=== PATIENT | male | born 1960 | race Two or more races ===

== ENCOUNTER 2024-01-28 16:19 | Inpatient (IN) | payer OTHER, SELFPAY ==
[2024-01-28] VITALS (8 sets, daily range): BP systolic 127–139; BP diastolic 73–97; BMI 22.4
--- NOTE | 2024-01-28 15:58 | HPS.HSE ---
Family Physician
-
Family Physician: Edenilson Storm MD
Chief Complaint
-
NSTEMI
History of Present Illness
63-year-old male with past medical history of type 2 diabetes, , family history significant for coronary disease, HTN, and iron deficiency anemia presented to [facility] after experiencing chest pain and shortness of breath while working.
He he said that the chest pain lasted about 15 minutes and 8 out of 10 pain severity. Of note patient complained of 1 episode of bloody diarrhea that morning. While in the emergency room patient was found to have elevated troponins initial was 10
and with repeat it was 40s and eventually plateaued around the 90s. He was made n.p.o. for a lower endoscopy which showed no acute bleeding. Today he was taken to the cardiac [employer] which showed multivessel disease. Therefore he was transferred
to [facility] for surgical evaluation.
Echocardiogram on 01/23 showed normal LVEF and no significant valvular abnormalities and left heart cath revealed a normal left main, proximal LAD 90% stenosis followed by multiple areas of 50 to 70% mid LAD stenosis, OM 2 and had a long area of mid
50 to 70% stenosis.
Medical History
Past Medical History
Past Medical History: Reports CAD, HTN, Hypercholesterolemia and NIDDM
Past Surgical History: Reports Other (Circumcision)
Social History
Tobacco: Non-smoker
Alcohol: None
Drug: None
Personal:
Living: With Family
Employment: Employed (works at [employer])
Family History
Family History: CAD (brother and father)
Allergies / Home Medications
Allergies reflects when Allergies were last updated in [employer].
Home Medications with original date entered in [employer]
Allergy/Medication List:
Home Medications
�Medication �Instructions �Recorded
empagliflozin 25 mg tablet 25 mg PO DAILY 01/28/24
(Jardiance)
empagliflozin 25 mg tablet 25 mg PO DAILY 01/28/24
(Jardiance)
losartan 50 mg tablet 50 mg PO DAILY 01/28/24
metformin 1,000 mg tablet 1,000 mg PO BIDWMEAL 01/28/24
pioglitazone 45 mg tablet 45 mg PO DAILY 01/28/24
Active Medications
Acetaminophen (Acetaminophen 325 Mg Tablet) 650 mg PO Q4HPRN PRN
PRN Reason: mild pain/ATKINSON/temp> 100.4F
Stop: 02/25/24 15:52
Al Hydrox/Mg Hydrox/Simethicone (Mag/Al/Simethicone Suspension 30 Ml Cup) 30 ml PO Q6HPRN PRN
PRN Reason: Heartburn
Stop: 02/25/24 15:52
Ascorbic Acid (Ascorbic Acid 250 Mg Tablet) 250 mg PO DAILY MIA
Stop: 02/26/24 07:59
Aspirin (Aspirin 81 Mg Chewable Tablet) 81 mg PO DAILY MIA
Stop: 02/26/24 07:59
Atorvastatin Calcium (Atorvastatin (Lipitor) 80 Mg Tablet) 80 mg PO QPM MIA
Stop: 02/25/24 17:59
Bisacodyl (Bisacodyl 10 Mg Rectal Suppository) 10 mg RECTAL [id number] PRN
PRN Reason: constipation
Stop: 02/25/24 15:52
Docusate Sodium (Docusate Sodium 100 Mg Capsule) 100 mg PO BID MIA
Stop: 02/25/24 19:59
Ferrous Sulfate (Ferrous Sulfate 325 Mg Tablet) 325 mg PO DAILY MIA
Stop: 02/26/24 07:59
Insulin Aspart (Insulin Aspart Moderate Resistance 300 Units/3 Ml Pen.Injctr) 0 units SC AC MIA; Protocol
Stop: 02/26/24 07:29
Metoprolol Succinate (Metoprolol 12.5 Mg Extended Release Dose (1/2 Of 25 Mg Xl Tablet)) 12.5 mg PO DAILY MIA
Stop: 02/26/24 07:59
Ondansetron HCl (Ondansetron 4 Mg/2 Ml Vial) 4 mg IV Q6HPRN PRN
PRN Reason: nausea and vomiting
Stop: 02/25/24 15:52
Polyethylene Glycol (Polyethylene Glycol Powder 17 Grams Packet) 17 grams PO DAILYPRN PRN
PRN Reason: constipation
Stop: 02/25/24 15:52
Senna/Docusate Sodium (Docusate W/Senna (Sia-Colace) Tablet) 1 tablet PO BIDPRN PRN
PRN Reason: constipation
Stop: 02/25/24 15:52
Sennosides (Sennosides (Senokot) 8.6 Mg Tablet) 8.6 mg PO BID MIA
Stop: 02/25/24 19:59
Sodium Chloride (Sodium Chloride 0.9% (Flush) Syringe) 0 flush IV PER PROTOCOL MIA
Stop: 02/25/24 17:59
Review of Systems
-
History Source: Patient and Family
A 12 point ROS was completed and negative except as noted: Yes
Constitutional: Reports No Symptoms
EENT: Reports No Symptoms
Respiratory: Reports Trouble Breathing
Cardiac: Reports Chest Pain
Abdomen/GI: Reports Diarrhea and Bloody Stools
: Reports No Symptoms
Musculoskeletal: Reports No Symptoms
Skin: Reports No Symptoms
Neurological: Reports No Symptoms
Endocrine: Reports No Symptoms
Hematologic/Lymphatic: Reports No Symptoms
Psych: Reports No Symptoms
Physical Exam
Vital Signs
Vital Signs
Temp Pulse Resp BP Pulse Ox
98 F 62 16 132/78 98
01/28/24 17:01 01/28/24 17:01 01/28/24 17:01 01/28/24 17:01 01/28/24 17:01
Physical Exam
General: Well Developed and Well Nourished
HEENT: NormoCephalic and PERRLA
Respiratory: Clear
Cardiac: S1/S2 and Regular Rhythm
Breast: Deferred by me
GI: Soft and Non Tender
Genito-urinary: Deferred by me
Musculoskeletal: No Clubbing, No Cyanosis and No Edema
Skin: Warm and Dry
Neuro: AO x 3
Hematologic/Lymphatic: No Lymphadenopathy
Psych: Calm
Laboratory Results
-
01/28/24 16:35
Impression/Plan
-
IMPRESSION:
63-year-old male with past medical history as above presented to [facility] initially with complaints of chest pain and bloody diarrhea. He was found to have multivessel disease and was transferred to [facility] for CABG evaluation.
PLAN:
#CAD
-Patient's case will be discussed with attending physician. Further details regarding surgical timing intervention will be determined after attending physicians full evaluation
-Routine preoperative cardiothoracic surgery orders will be initiated.
-STS risk stratification score will be calculated after preoperative testing is complete
-Will get EKG and consult cardiology
- will start heparin gtt since GI work up at [facility] was negative for bleeding
#Diabetes mellitus type 2
-Sliding scale insulin while inpatient
- will hold oral DM medications while awaiting surgery
- Cholesterol lower and carb control diet
#ARCENIO (resolved)
- Trend Cr
- Peaked at 1.3 at [facility] and is now back to baseline (1.0)
#Hypertension
- hold losartan
- Will start low dose BB
- Will add hydralazine for BP control while awaiting surgery
#DVT prophylaxis
-heparin gtt and SCDs
Labs
-
Labs:
WBC 5.6 10^3/uL (4.8-10.8) 01/28/24 16:35
RBC 4.71 10^6/uL (4.70-6.10) 01/28/24 16:35
Hgb 12.6 g/dL (13.0-18.0) L 01/28/24 16:35
Hct 38.5 % (39.0-52.0) L 01/28/24 16:35
Plt Count 189 10^3/uL (130-400) 01/28/24 16:35
[2024-01-28 17:02] LABS: Hematocrit 38.5 % (39.0-52.0); Hemoglobin 12.6 g/dL (13.0-18.0); Mean Corp Hgb Conc. 32.7 g/dL (33.0-37.0); Mean Corpuscular Hgb 26.8 pg (27.0-31.0); Mean Corpuscular Volume 81.7 fL (80.0-94.0); Mean Platelet Volume 10.1 fL (7.4-10.4); Platelet Count 189 10^3/uL (130-400); Red Blood Cell Count 4.71 10^6/uL (4.70-6.10); Red Cell Dist. Width 14.6 % (11.5-14.5); White Blood Cell Count 5.6 10^3/uL (4.8-10.8)
[2024-01-28 17:15] LABS: PT 14.1 Sec (11.4-14.6)
[2024-01-28 17:17] LABS: APTT 75.3 Sec (23.4-35.0)
[2024-01-28 17:25] LABS: ALT (SGPT) 23 U/L (0-50); AST (SGOT) 26 U/L (17-59); Albumin 3.9 g/dl (3.5-5.0); Alkaline Phosphatase 79 U/L (38-126); Blood Urea Nitrogen 10 mg/dl (9-20); Calcium 8.7 mg/dl (8.4-10.2); Carbon Dioxide 22 mmol/L (22-30); Chloride 107 mmol/L (98-107); Glucose 99 mg/dl (70-99); HDL Cholesterol 36 mg/dl; LDL Cholesterol, Calculated 33 mg/dl; Magnesium 1.8 mg/dl (1.6-2.3); Potassium 4.3 mmol/L (3.5-5.1); Sodium 140 mmol/L (135-145); Total Bilirubin 1.1 mg/dl (0.2-1.3); Total Cholesterol 78 mg/dl (50-199); Total Protein 6.3 g/dl (6.3-8.2); Triglyceride 47 mg/dl (10-149); Very Low Density Lipoprotein 9 mg/dl (0-30); eGFR > 60.00
[2024-01-28] MEDS: LIPITOR 80 MG PO (17:49)
--- NOTE | 2024-01-28 20:00 | PTCARENOTE ---
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 Report received at 1845 from Armond RODRIGUEZ. Walking rounds done. Pt is primarily Isabel-speaking. Son-in-law at bedside to translate. Pt denies CP and other anginal symptoms. Heparin gtt started at 2014
at 700 units/hr. Talked with Ed, EL about drawing another PTT prior to starting Heparin gtt. (PTT done on admit) PA states no need to redraw PTT. Will follow Heparin protocol and check PTT in 6 hours. Signs of bleeding reviewed with pt and son.
Pt neuro intact. Awake, oriented x 4. Speech clear, moves all extremities equally.
Pt on room air. Sat 98%. BBS present. Decreased to B bases.
Pt in SR. Audible heart tones. +2 palpable DP and PT pulses. R radial cath site with dressing dry and intact. See post-cath flowsheet.
Belly soft, nontender. Normoactive bowel sounds x 4. Last BM reported at [facility] on 01/25/24.
Voids in urinal without difficulty, clear and yellow.
Admission interventions completed with pt and family. Family staying overnight with pt.
[2024-01-28] MEDS: HEPARIN 25000 UNITS/250 ML IV (20:04)
[2024-01-28] MEDS: MAGNESIUM OXIDE 500 MG PO (20:40)
[2024-01-28] MEDS: SENOKOT 8.6 MG PO (20:43)
[2024-01-28] MEDS: COLACE 100 MG PO (20:43)
--- NOTE | 2024-01-28 22:20 | PTCARENOTE ---
VS recorded. Pt denies CP and other anginal symptoms. Heparin gtt remains at 700 units/hr. To draw PTT at 0200. R radial dressing dry and intact. Son staying overnight. Updated on plan of care. Will actively monitor pt.
[2024-01-28 22:49] LABS: Glucose - Point of Care 178 mg/dl (70-99)
[2024-01-29] VITALS (8 sets, daily range): BP systolic 100–134; BP diastolic 68–83; BMI 22.7
--- NOTE | 2024-01-29 02:20 | PTCARENOTE ---
Lab work and EKG done. VS done. See flowsheet. Pt without c/o CP or any other anginal symptoms.
[2024-01-29 02:56] LABS: INR 1.09; PT 13.9 Sec (11.4-14.6)
[2024-01-29 02:57] LABS: APTT 51.1 Sec (23.4-35.0)
[2024-01-29 02:59] LABS: Hematocrit 36.6 % (39.0-52.0); Hemoglobin 12.2 g/dL (13.0-18.0); Mean Corp Hgb Conc. 33.3 g/dL (33.0-37.0); Mean Corpuscular Hgb 26.5 pg (27.0-31.0); Mean Corpuscular Volume 79.6 fL (80.0-94.0); Mean Platelet Volume 10.3 fL (7.4-10.4); Platelet Count 188 10^3/uL (130-400); Red Cell Dist. Width 14.7 % (11.5-14.5); White Blood Cell Count 4.7 10^3/uL (4.8-10.8)
[2024-01-29 03:00] LABS: ALT (SGPT) 24 U/L (0-50); AST (SGOT) 29 U/L (17-59); Albumin 3.8 g/dl (3.5-5.0); Alkaline Phosphatase 76 U/L (38-126); Blood Urea Nitrogen 13 mg/dl (9-20); Calcium 8.9 mg/dl (8.4-10.2); Carbon Dioxide 22 mmol/L (22-30); Chloride 107 mmol/L (98-107); Direct Bilirubin 0.1 mg/dl (0.0-0.4); Estimated Creatinine Clearance 70 ml/min; Glucose 130 mg/dl (70-99); Potassium 4.1 mmol/L (3.5-5.1); Sodium 139 mmol/L (135-145); Total Bilirubin 1.2 mg/dl (0.2-1.3); Total Protein 6.2 g/dl (6.3-8.2); eGFR > 60.00
[2024-01-29 03:13] LABS: Troponin I 0.062 ng/ml
--- NOTE | 2024-01-29 06:44 | PTCARENOTE ---
CHG bath given. Pt helped to standing scale to be weighed then to recliner chair. Pt requested to go back to bed to sleep. Pt assisted back to bed. No c/o CP or other anginal symptoms. Heparin at 900 units/hr.
--- NOTE | 2024-01-29 07:15 | CON.CAR ---
Addendum entered and electronically signed by Nadir Pang MD 01/29/24 16:19:
Attending addendum: Patient seen and examined. PA note reviewed and findings confirmed by me independently. Multiple family members in the room. Patient has been chest pain free since his arrival. Coronary angiography by Dr. Collado notable for
small diabetic vessels with multivessel CADz primarily involving the LAD and LCx. He was referred to [facility] for CT surgical evaluation. He had experienced bloody bowel movement prior to arrival at [facility]. He underwent
colonoscopy at [facility].
IMPRESSION/RECOMMENDATIONS:
-Multivessel Coronary disease:
Awaiting CT surgical evaluation
The family members are discussing with extended family
DM and multivessel CADz
-Mixed hyperlipidemia:
high intensity statin
-Primary Hypertension:
BP reasonably well controlled
Original Note:
Consultation
Consultation Request
Date/Time Consultation Requested: 01/28/24 at 1708
Date/Time Consultation Performed: 01/29/24 at 0724
Requesting Provider: Dr. Sheikh
Performing Provider: Dr. Pang
Reason for Consultation: Chest pain, NE, transfer for CABG evaluation
Medical History
-
History of Present Illness:
Patient came to as a transfer on 01/28/24 for evaluation of MV CAD and cardiology is now consulted. Patient and his son describe an episode of chest pain in October that was evaluated by PCP with an ECG in the office that was reportedly normal. Chest
pain described as episodes of pain while at a park x2-3 episodes. Patient was referred to cardiology and family says that they had a new patient appt scheduled for February, but on 01/23/24 patient was at work when he had bloody BM and then started
with chest pain that did not resolve so he was taken to [facility] ER. Troponin elevated at [facility]. Patient was seen by cardiology and recommended a cath, but first needed a GI work-up, patient had never had colonoscopy previously. Patient had unremarkable
colonoscopy at [facility]. Patient then had cardiac cath at [facility] 01/28/24 that showed MV CAD and was transferred to for a CABG evaluation. No chest pain since admission to [facility]. Patient now tolerating Heparin gtt without evidence of ongoing GI bleeding and
Hgb stable.
PMH:
HTN
DM 2
Past Medical History
Past Medical History: Other (in HPI)
Past Surgical History: None
Social History
Tobacco: Non-Smoker
Alcohol: None
Drug: None
Personal:
Living: With Family
Employment: Employed ([employer], but o heavy lifting)
Family History
Family History: CAD (family members with h/o NE and PCI)
Allergies / Home Medications
Allergy/AdvReac Type Severity Reaction Status Date / Time
No Known Allergies Allergy Verified 01/28/24 20:50
�Medication �Instructions �Recorded �Confirmed �Type
empagliflozin 25 mg tablet 25 mg PO DAILY 01/28/24 01/28/24 History
(Jardiance)
losartan 50 mg tablet 50 mg PO DAILY 01/28/24 01/28/24 History
metformin 1,000 mg tablet 1,000 mg PO BIDWMEAL 01/28/24 01/28/24 History
pioglitazone 45 mg tablet 45 mg PO DAILY 01/28/24 01/28/24 History
Review of Systems
-
History Source: Patient and Family (2 sons bedside)
All other systems: Negative unless noted
Physical Exam
Vital Signs
Temp Pulse Resp BP Pulse Ox
97.9 F 77 16 100/76 97
01/29/24 06:38 01/29/24 06:38 01/29/24 06:38 01/29/24 06:38 01/29/24 06:38
GEN: NAD. AAOx3, sons translating
HEENT: EOMI, MMM
LUNGS: CTA B/L, no wheezes or rales
CV: Reg, S1/S2, no murmur
ABD: soft, BS+, NT, ND
EXT: No clubbing, cyanosis, lesions or edema B/L. +DP/PT pulses B/L
NEURO: Gross non-focal
SKIN: No rash
Lab Results
01/29/24 02:30
01/29/24 02:30
Troponin I 0.062 ng/ml H* 01/29/24 02:30
Impression / Plan
-
PCP: Dr. Storm
Cardiology: None prior to admission, seen by ATC at [facility]
Impression:
Admitted to [facility] with chest pain and hematochezia 01/23/24
Transferred to for CABG evaluation 01/28/24
NSTEMI, peak Troponin T at [facility] 90
MV CAD by cath at [facility] 01/28/24
s/p cath at [facility] normal LM, prox LAD 90% stenosis followed by multiple areas of 50 to 70% mid LAD stenosis, OM 2 long area of mid 50 to 70% stenosis 01/28/24
Hematochezia with unremarkable GI work-up at [facility]
ARCENIO at [facility] prior to transfer
HTN
DM 2
Echo 01/24/24: [facility] study, preserved EF, no significant valve disease
Plan:
-Patient came to as a transfer on 01/28/24 for evaluation of MV CAD and cardiology is now consulted. Patient and his son describe an episode of chest pain in October that was evaluated by PCP with an ECG in the office that was reportedly normal.
Chest pain described as episodes of pain while at a park x2-3 episodes. Patient was referred to cardiology and family says that they had a new patient appt scheduled for February, but on 01/23/24 patient was at work when he had bloody BM and then
started with chest pain that did not resolve so he was taken to [facility] ER. Troponin elevated at [facility]. Patient was seen by cardiology and recommended a cath, but first needed a GI work-up, patient had never had colonoscopy previously. Patient had
unremarkable colonoscopy at [facility]. Patient then had cardiac cath at [facility] 01/28/24 that showed MV CAD and was transferred to for a CABG evaluation. No chest pain since admission to [facility]. Patient now tolerating Heparin gtt without evidence of ongoing GI
bleeding and Hgb stable.
-Patient and family await opinion of CT surgeon.
-Pain free on heparin gtt
-Hgb stable. No recurrence of hematochezia and colonoscopy was unremarkable at [facility].
-ECG reviewed by me shows SR without acute ischemic change.
-Cre 0.9. Outpatient dose of losartan 50 mg daily is on hold.
-HgbA1c 6.4% with h/o DM 2. Outpatient doses of metformin, Actos, and Jardiance are on hold. Patient is being covered with corrective insulin
-New to Toprol XL 12.5 mg daily. BP 118/83
-LDL 33 and patient is new to atorvastatin 80 mg daily. Patient was not taking a statin prior to admission.
-New to aspirin 81 mg daily, patient was not taking aspirin prior to admission
-Pending outcome of surgical evaluation, patient should eventually be placed on DAPT due to NSTEMI
[2024-01-29] MEDS: SENOKOT 8.6 MG PO ×2 (07:53→19:51)
[2024-01-29] MEDS: FEOSOL 325 MG PO (07:53)
[2024-01-29] MEDS: MAGNESIUM OXIDE 500 MG PO (07:53)
[2024-01-29] MEDS: COLACE 100 MG PO ×2 (07:53→19:51)
[2024-01-29] MEDS: TOPROL XL 12.5 MG PO (07:53)
[2024-01-29] MEDS: VITAMIN C 250 MG PO (07:53)
[2024-01-29] MEDS: LOW STRENGTH ASPIRIN 81 MG PO (07:53)
[2024-01-29 08:05] LABS: Glycohemoglobin (HgbA1c) 6.4 % (4.0-5.6)
--- NOTE | 2024-01-29 08:05 | PTCARENOTE ---
Assumed care of patient at 0700. Pt is awake, alert, and oriented. No complaints of chest pain. Pt remains SR with HR 70's. BP 118/83 MAP 94. Pulse oximetry 97% on room air. Abdomen soft nontender, bowel sounds audible. No complaints of bloody
stool. Tolerated PO medication. Voiding in bathroom without issue. Right radial site CDI, pulses palpable. Neurovascular assessment WNL. Pt remains on heparin gtt at 900units/hr.
[2024-01-29] MEDS: NOVOLOG FLEXPEN-MODERATE RESISTANCE SC ×2 (08:50→17:05)
[2024-01-29 08:52] LABS: Glucose - Point of Care 142 mg/dl (70-99)
[2024-01-29 10:14] LABS: APTT 48.4 Sec (23.4-35.0)
[2024-01-29 11:39] LABS: Glucose - Point of Care 294 mg/dl (70-99)
--- NOTE | 2024-01-29 12:00 | PTCARENOTE ---
Pt received from Onur RODRIGUEZ; AAOx3, responds to spontaneous stimulation and follows commands; NSR on monitor; DP and radial pulses present; Lungs clear; SpO2 96-100% on RA; Urinating in bathroom; No further episodes of bloody BM's reported to RN;
Right radial puncture site intact; PIVx2 present; Patient denies any pain at this time; IV Heparin infusing - see nursing flowsheets for further information; See nursing documentation for further details.
[2024-01-29] MEDS: NOVOLOG FLEXPEN-MODERATE RESISTANCE 5 UNITS SC (12:20)
[2024-01-29 17:03] LABS: APTT 124.5 Sec (23.4-35.0)
[2024-01-29 17:06] LABS: Glucose - Point of Care 94 mg/dl (70-99)
[2024-01-29] MEDS: LIPITOR 80 MG PO (17:07)
--- NOTE | 2024-01-29 17:10 | PTCARENOTE ---
PTT 124.9; Heparin gtt decreased to 1000 units/hour; Next PTT due at 2310.
--- NOTE | 2024-01-29 20:33 | PTCARENOTE ---
Resumed care of pt sitting up in bed AAOx3, Pt Isabel speaking, able to speak some broken Ethiopian, Family at beside able to translate further when needed. HR in the 70's in NSR on the monitor. Pt denies any complaints of chest pain at this time. POX
100% on RA, lungs dec at bases. + bowel, round abd. Palpable peripheral pulses present. No edema. Right radial cath site with dressing intact. Rt forearm int capped. Left Forearm int infusing Heparin gtt @1000units/hr. Pt able to ambulate
independently to bathroom when needed, stable on feet. Pt denies any complaints at this time. Will continue to monitor.
[2024-01-29 21:28] LABS: Glucose - Point of Care 153 mg/dl (70-99)
[2024-01-29] MEDS: HEPARIN 25000 UNITS/250 ML IV (22:50)
[2024-01-29 23:25] LABS: APTT 139.4 Sec (23.4-35.0)
[2024-01-30] VITALS (13 sets, daily range): BP systolic 98–127; BP diastolic 68–83; BMI 22.5
--- NOTE | 2024-01-30 01:07 | W.PN.CT ---
Today's Communication / Plan
-
Plan:
-Ongoing preop workup
-Cont. current meds (ASA, Heparin gtt, Toprol XL, Lipitor)
-For CABG vs PCI, pt discussing with family
-Will cont. to closely monitor
Assessment / Plan
-
Assessment:
-Severe 2v CAD involving LAD and LCx
-NSTEMI @ [facility] (peak trop T 90)
-[place]
-HTN
-T2DM (hgb A1C 6.4)
-Recent GI bleed (workup unremarkable)
Discussed patient care with: Cardiology, Nursing and Care Team
Subjective
-
Date of Service: January 30, 2024
No issues overnight. Denies chest pain/SOB
Objective Data
-
Lab Results
01/29/24 02:30
PT 13.9 Sec (11.4-14.6) 01/29/24 02:30
INR 1.09 01/29/24 02:30
APTT 139.4 Sec (23.4-35.0) H 01/29/24 22:55
Vital Signs
Vital Signs
Temp Pulse Resp BP Pulse Ox
98.9 F 80 18 124/78 97
01/29/24 22:50 01/29/24 23:00 01/29/24 22:50 01/29/24 22:50 01/29/24 23:17
CT Intake/Output/Weight
01/29/24 01/29/24 01/30/24
06:59 18:59 06:59
Intake Total 58 / 358 594 / 644 50 / 644
Output Total 550 / 900
Balance -492 / -542 594 / 644 50 / 644
SaO2: 97 (RA)
Physical Exam
-
General: Awake, Oriented and AOx3
Cardiovascular: Regular rate & rhythm and No Murmurs
Respiratory: Clear
Extremities: No Edema
Data Reviewed
-
Lab Results: Results Reviewed
Medications: Active Meds Reviewed
Chest X-Ray: Report Reviewed and Image Reviewed
ECG: Report Reviewed and Image Reviewed
--- NOTE | 2024-01-30 06:13 | PTCARENOTE ---
Pt slept well overnight. No issues to report. Vital signs stable. No changes in assessment noted at this time. Will continue to monitor.
[2024-01-30 06:45] LABS: Hematocrit 40.3 % (39.0-52.0); Hemoglobin 13.5 g/dL (13.0-18.0); Mean Corp Hgb Conc. 33.5 g/dL (33.0-37.0); Mean Corpuscular Hgb 26.7 pg (27.0-31.0); Mean Corpuscular Volume 79.6 fL (80.0-94.0); Mean Platelet Volume 10.4 fL (7.4-10.4); Platelet Count 186 10^3/uL (130-400); Red Blood Cell Count 5.06 10^6/uL (4.70-6.10)
[2024-01-30 06:54] LABS: APTT 97.6 Sec (23.4-35.0)
[2024-01-30 08:41] LABS: Glucose - Point of Care 121 mg/dl (70-99)
[2024-01-30] MEDS: NOVOLOG FLEXPEN-MODERATE RESISTANCE SC ×2 (09:48→17:22)
[2024-01-30] MEDS: SENOKOT 8.6 MG PO ×2 (09:49→20:08)
[2024-01-30] MEDS: LOW STRENGTH ASPIRIN 81 MG PO (09:49)
[2024-01-30] MEDS: FEOSOL 325 MG PO (09:49)
[2024-01-30] MEDS: TOPROL XL 12.5 MG PO (09:49)
[2024-01-30] MEDS: COLACE 100 MG PO ×2 (09:49→20:08)
[2024-01-30] MEDS: VITAMIN C 250 MG PO (09:50)
[2024-01-30 12:03] LABS: Glucose - Point of Care 261 mg/dl (70-99)
[2024-01-30] MEDS: NOVOLOG FLEXPEN-MODERATE RESISTANCE 5 UNITS SC (12:04)
[2024-01-30 12:27] LABS: APTT 87.7 Sec (23.4-35.0)
--- NOTE | 2024-01-30 13:41 | W.PN.UPDATE ---
Update Note
Progress Note Update
Case again reviewed in detail with the patient and his family.
After admission on Sunday and formal CT surgical evaluation yesterday, he is still vacillating between CABG, PCI, or medical therapy.
I reiterated my belief that his best outcome is with surgical bypass given his small vessel disease in the setting of diabetes.
He was also seen by retail grocer Dr. Nadir Pang and Dr. Erika Hernandez (who speaks his [place] language) who gave him the same opinion.
Dr. Connor Sheikh outlined CABG and also agreed that he was best served with surgery.
The patient understands these opinions as well as the risks associated with each interventional and medical approach and is opting for percutaneous coronary intervention. I explained this would be higher risk with a increased need for repeat
procedures in the future. He understands these risks and wishes to proceed. He is willing to have CT surgical bailout if there is an emergency complication of PCI.
Will proceed with PCI of the LAD today.
--- NOTE | 2024-01-30 13:49 | W.PN.UPDATE ---
Update Note
Progress Note Update
Patient and his family decided against surgical option for his coronary artery disease. Patient will be transferred to hospitalist service for the remainder of his care. Cardiology to pursue PCI options.
--- NOTE | 2024-01-30 13:49 | ITS.CL.ANGIO ---
Refrigeration Mechanic Helper - Angioplasty
Angioplasty
Procedure Report:
LEFT HEART CATHETERIZATION
Date of Procedure: January 30, 2024
Procedures performed:
1: Complex percutaneous coronary intervention of the ostial, proximal, and mid left anterior descending artery with placement of overlapping drug-eluting stents (2.0 x 26 mm Cope overlapping with a 2.25 x 30 mm Zachariah) postdilated distally at high
pressure with a 2.0 mm diameter noncompliant balloon and proximally/ostially with a 2.5 mm diameter noncompliant balloon at high pressure
Primary Care Physician: Dr. Edenilson Storm
Primary Bark Press Operator: Dr. Bruce Perdue
INDICATION: The patient is a 63-year-old man who presents with unstable angina and ruled in for a small non-STEMI. He also has a past medical history significant for hypertension and diabetes. Echocardiography performed at [place] showed
preserved LV systolic function. He was transferred to [place] for CT surgical consultation. the patient refused surgery and would like to proceed with PCI.
ACCESS: The patient was prepped and draped in usual sterile fashion. A 6 Tamazight sheath was placed in the right radial artery using the Seldinger over the wire technique.
HEMODYNAMIC FINDINGS (mmHg):
Ao(s/d,m): 120/68, 89
Coronary Angiography: Performed at [facility] on Sunday
Dominance: Right
Left Main: Normal
Left Anterior Descending: The left anterior descending artery is a small to medium caliber vessel that has a hazy calcific proximal complex 90% stenosis followed by multiple areas of 50 to 70% mid stenosis. The distal vessel appears to be a
reasonable surgical target with normal distal flow. There are several small diagonal branches which are not surgical targets.
Left Circumflex: The left circumflex is a medium caliber nondominant system that gives rise to a small high OM1 that is widely patent. The second obtuse marginal branch is a very large caliber vessel that has a long area of mid 50 to 70% stenosis.
Distal to this the vessel is a large caliber surgical target that courses to the lateral apex.
Right Coronary: The right coronary artery is a medium caliber dominant vessel that has diffuse mild ostial disease. There is mild to moderate nonobstructive luminal irregularities throughout the AV groove. The posterior descending artery is a tiny
vessel that has severe proximal diffuse small vessel disease with normal distal flow and a nonsurgical target. The distal right gives rise to 2 relatively large PLV branches that are widely patent with normal flow.
Percutaneous Coronary Intervention (PCI): The patient was pretreated with aspirin. Unfractionated heparin was given. Once the wire was across the lesion, a double bolus of Integrilin was given. A loading dose of ticagrelor was given on the table
at the end of the procedure. A 6 Tamazight XB 3.0 guiding catheter was used to engage the left main. A short Hi-Torque floppy wire was easily advanced into the apical LAD. A 2.0 x 12 mm balloon was used to predilate the preocclusive proximal
stenosis. Follow-up angiography showed preserved WAYLON-3 flow. I then used the same balloon to predilate the long area of mid disease in a distal to proximal fashion. Next a 2.0 x 26 mm Zachariah drug-eluting stent was delivered distally and deployed
at 12 kaylene. The stent balloon was used to size and then appropriately placed a 2.25 x 30 mm Zachariah stent in overlapping fashion with the previous stent and covering the LAD ostium. The stent was deployed at 12 kaylene. Intravascular ultrasound imaging
was performed in limited fashion as the IVUS catheter would not advance beyond the proximal stented segment. This did show that the stent entirely cover the ostium and the optimal lumen diameter was 2.5 mm at the ostium. The IVUS catheter was
removed. Attempts to pass noncompliant balloons for post dilation down the stented segment were unsuccessful so a 6 Tamazight Guideliner was employed. Ultimately a 2.0 noncompliant balloon was used to inflate the most distal portion of the stent at
16 kaylene. The midportion of the overlap segment was postdilated with a 2.25 mm diameter noncompliant balloon at 16 kaylene. The proximal and ostial portion was postdilated with a 2.5 x 20 mm noncompliant balloon at 16 kaylene. Again attempts to pass the
IVUS catheter beyond the mid segment were not successful. I redilated the true ostium with a 2.5 x 12 mm noncompliant balloon inflated to 20 kaylene. Angiography confirmed optimal stent coverage of the ostium with no plaque shift into the circumflex.
FINAL RESULT: 0% residual in-stent stenosis with WAYLON-3 flow in all jailed and distal vessels.
Fluoroscopy Time (min): 19.5
Radiation Dose (mGy): 884
DAP (Gy.cm2): 24
Closure device: None. A TR band was applied for hemostasis at the right wrist.
Complications: None.
ASSESSMENT:
1: Successful complex PCI of the ostial/proximal/mid LAD with long overlapping drug-eluting stents as described above using intravascular ultrasound guidance.
CONCLUSIONS and RECOMMENDATIONS:
1: Routine post drug-eluting stent medical therapy and monitoring.
2: He is at high risk for in-stent restenosis given diabetes and long small caliber stenting. If he returns with symptoms associated with in-stent restenosis I would again refer for consideration for surgical bypass.
3: Medical therapy for his residual coronary disease in the circumflex.
Emma Collado M.D.
Copy to: Dr. Edenilson Storm
[2024-01-30 15:37] LABS: ACT-LR - POC > 397 Seconds (116-155)
[2024-01-30 15:37] LABS: ACT-LR - POC > 397 Seconds (116-155)
--- NOTE | 2024-01-30 16:04 | CM ---
Reviewed chart. Met with Mr. Valentin and his family to review discharge plans. His son-in-law answered most of the questions. Prior to admission he resdies with his daughter and son-in-law in a two story home without any steps to enter the home. He
has a full flight of steps to get to bedroom/fulll bathroom. He has a powder room on the first floor. Prior to admission he was independent with ambulation and adls. He does not have any DME in the home. He has a prescription plan with [facility], ([phone]) to check on co-pay for Brilinta 90 mg po bid. His co-pay would be zero. Telephone call to [facility] ,([phone]) to check if Brilinta 90 mg po bid. [facility] has one bottle in stock. Medical work-up in progress. The
discharge plan is to return home with his family when medically stable.
[2024-01-30] MEDS: NSS 1000 IV (16:29)
--- NOTE | 2024-01-30 16:58 | PTCARENOTE ---
Received pt post cath. VSS. Right radial site intact w/ R band. All nursing measures translated by pt's family. Encouraged questions. Will monitor.
--- NOTE | 2024-01-30 17:02 | PTCARENOTE ---
Pt noted to have sensitivity where the monitor lead patches are. Red blotchy areas noted. Hypoallergenic patches applied. Moisturizer applied for comfort. Will monitor.
[2024-01-30 17:16] LABS: Glucose - Point of Care 98 mg/dl (70-99)
[2024-01-30] MEDS: LIPITOR 80 MG PO (17:22)
[2024-01-30] MEDS: FLUSH (NSS) 1 FLUSH IV (20:08)
--- NOTE | 2024-01-30 20:47 | PTCARENOTE ---
Received patient at change of shift. Patient awake, alert, and oriented. Sitting in bed with family bedside. Right radial site ecchymotic with R-band-- 2mL of air remaining. No bleeding or hematoma. BP 109/83, NSR 71, 99% on room air. Discussed not
using his arm to push up in bed. Patient verbalized understanding. Call morgan within reach.
--- NOTE | 2024-01-30 20:51 | HPS.HSE ---
Family Physician
-
Family Physician: Edenilson Storm MD
Chief Complaint
-
chest pain
History of Present Illness
63-year-old male past medical history of CAD, type 2 diabetes, hypercholesterolemia, hypertension, presenting as a transfer to [facility] on 01/27 after experiencing chest pain and shortness of breath while working. Chest pain lasted 15
minutes and was rated 8 out of 10. Had 1 episode of bloody diarrhea that morning. While in the emergency room he was found have elevated troponins. He had colonoscopy which showed no acute bleeding. He was taken to cardiac [employer] which showed
multivessel disease and transferred to [facility] for CABG evaluation.
He underwent catheterization here with placement of stent.
Denies any chest pain or shortness of breath or GI bleeding.
Denies smoking or alcohol use.
Medical History
Past Medical History
Past Medical History: Reports Other (CAD, type 2 diabetes, hypercholesterolemia, hypertension)
Past Surgical History: Reports None
Social History
Tobacco: Non-smoker
Alcohol: None
Drug: None
Family History
Family History: Not pertinent
Allergies / Home Medications
Allergies reflects when Allergies were last updated in [employer].
Home Medications with original date entered in [employer]
Allergy/Medication List:
Allergies
Allergy/AdvReac Type Severity Reaction Status Date / Time
No Known Allergies Allergy Verified 01/28/24 20:50
Home Medications
empagliflozin 25 mg tablet (Jardiance) 25 mg PO DAILY Diabetes 01/28/24
losartan 50 mg tablet 50 mg PO DAILY Blood Pressure 01/28/24
metformin 1,000 mg tablet 1,000 mg PO BIDWMEAL Diabetes 01/28/24
pioglitazone 45 mg tablet 45 mg PO DAILY Diabetes 01/28/24
Review of Systems
-
History Source: Patient
A 12 point ROS was completed and negative except as noted: Yes
Constitutional: Reports No Symptoms
EENT: Reports No Symptoms
Respiratory: Reports No Symptoms
Cardiac: Reports No Symptoms
Abdomen/GI: Reports No Symptoms
: Reports No Symptoms
Musculoskeletal: Reports No Symptoms
Skin: Reports No Symptoms
Neurological: Reports No Symptoms
Endocrine: Reports No Symptoms
Hematologic/Lymphatic: Reports No Symptoms
Psych: Reports No Symptoms
Physical Exam
Vital Signs
Vital Signs
Temp Pulse Resp BP Pulse Ox
97.8 F 71 16 118/70 99
01/30/24 18:50 01/30/24 20:00 01/30/24 18:50 01/30/24 18:50 01/30/24 18:50
Physical Exam
General: Well Developed, Well Nourished and No Apparent Distress
HEENT: NormoCephalic, Moist mucous membranes and Atraumatic
Respiratory: Clear
Cardiac: S1/S2 and Regular Rhythm; No Murmur or Rub
GI: Soft, Non Tender, Non Distended and Normal Bowel Sounds; No Organomegaly
Rectal: Deferred by Provider
Musculoskeletal: No Clubbing, No Cyanosis and No Edema
Skin: No Rash
Neuro: Nonfocal/grossly intact
Laboratory Results
-
01/30/24 06:31
01/29/24 02:30
Laboratory Results
PT 13.9 Sec (11.4-14.6) 01/29/24 02:30
INR 1.09 01/29/24 02:30
APTT 87.7 Sec (23.4-35.0) H 01/30/24 12:01
Total Bilirubin 1.2 mg/dl (0.2-1.3) 01/29/24 02:30
AST 29 U/L (17-59) 01/29/24 02:30
ALT 24 U/L (0-50) 01/29/24 02:30
Alkaline Phosphatase 76 U/L (38-126) 01/29/24 02:30
Troponin I 0.062 ng/ml H* 01/29/24 02:30
Data Reviewed
-
Lab Data: Labs Reviewed by me
Old Records: Reviewed
Impression/Plan
-
IMPRESSION:
PLAN:
# NSTEMI
# Multivessel CAD
-As per catheterization at [place], prox LAD 90% stenosis followed by multiple areas of 50 to 70% mid LAD stenosis, OM 2 long area of mid 50 to 70% stenosis 01/28/24
-Patient was transferred here for CABG however patient refused CABG and now transferred to hospitalist service
-Patient underwent cardiac catheterization with Complex percutaneous coronary intervention of the ostial, proximal, and mid left anterior descending artery
-Continue aspirin, Brilinta, statin
-Heparin drip stopped after catheterization
-Metoprolol started
Recent hematochezia
-Now resolved
-Unremarkable colonoscopy [place]
-No GI bleeding currently and patient tolerated heparin drip which is now
ARCENIO at [place]
-Creatinine of 1.3 previously, now resolved to 1
-Losartan held
Essential hypertension
-Blood pressure control
Type 2 diabetes
-Metformin, pioglitazone, empagliflozin on hold
-Insulin sliding scale
Hyperlipidemia
-Continue statin
Full code
DVT prophylaxis�SCDs
Regular diet
[2024-01-30 22:29] LABS: Glucose - Point of Care 82 mg/dl (70-99)
[2024-01-31 03:39] VITALS: BP 105/67
--- NOTE | 2024-01-31 03:58 | PTCARENOTE ---
Patient resting well. Right radial site clean, dry, and intact. Soft, no hematoma. Vitals stable. Call morgan within reach.
[2024-01-31 04:39] LABS: Hematocrit 36.5 % (39.0-52.0); Hemoglobin 12.2 g/dL (13.0-18.0); Mean Corp Hgb Conc. 33.4 g/dL (33.0-37.0); Mean Corpuscular Hgb 27.4 pg (27.0-31.0); Mean Platelet Volume 10.4 fL (7.4-10.4); Platelet Count 189 10^3/uL (130-400); Red Blood Cell Count 4.45 10^6/uL (4.70-6.10); Red Cell Dist. Width 14.8 % (11.5-14.5); White Blood Cell Count 4.6 10^3/uL (4.8-10.8)
[2024-01-31 05:05] LABS: Blood Urea Nitrogen 8 mg/dl (9-20); Calcium 8.7 mg/dl (8.4-10.2); Carbon Dioxide 20 mmol/L (22-30); Chloride 108 mmol/L (98-107); Estimated Creatinine Clearance 58 ml/min; Glucose 95 mg/dl (70-99); Potassium 4.1 mmol/L (3.5-5.1); Sodium 141 mmol/L (135-145); eGFR > 60.00
[2024-01-31 07:49] LABS: ACT-LR - POC > 397 Seconds (116-155)
[2024-01-31 07:53] VITALS: BP 101/81
[2024-01-31 07:56] VITALS: BMI 22.4
[2024-01-31 07:59] LABS: Glucose - Point of Care 165 mg/dl (70-99)
[2024-01-31] MEDS: TOPROL XL 12.5 MG PO (08:20)
[2024-01-31] MEDS: COLACE 100 MG PO (08:20)
[2024-01-31] MEDS: BRILINTA 90 MG PO (08:20)
[2024-01-31] MEDS: SENOKOT 8.6 MG PO (08:21)
[2024-01-31] MEDS: FEOSOL 325 MG PO (08:21)
[2024-01-31] MEDS: NOVOLOG FLEXPEN-MODERATE RESISTANCE 1 UNITS SC ×2 (08:21→12:16)
[2024-01-31] MEDS: LOW STRENGTH ASPIRIN 81 MG PO (08:21)
[2024-01-31] MEDS: VITAMIN C 250 MG PO (08:24)
--- NOTE | 2024-01-31 09:07 | PTCARENOTE ---
Assumed care of pt from night RN. Pt received awake and alert, Ox3. VSS, CM shows NSR 70's, POX 100% on RA. Right radial site remains CDI, with good CMS, Pt ambulating around room freely. Son at bedside to help translate.
--- NOTE | 2024-01-31 10:49 | W.PN.CARDCBS ---
Today's Communication / Plan
-
Recommendations:
1. Continue dual antiplatelet therapy with daily baby aspirin and Brilinta 90 mg twice daily in the setting of ACS for at least 1 year along with high intensity statin and beta-reji as tolerated. Given stable hemodynamics we will switch him to
25 mg of Toprol-XL upon discharge.
2. Continued management of cardiovascular risk factors aggressively.
3. His oral antidiabetic medications will be resumed with plan to restart metformin in 48 hours post cath.
4. ECG postintervention continues to remain stable with sinus rhythm and no acute ischemic changes.
5. Outpatient cardiology follow-up has been set up with the [facility] and he will be referred for outpatient cardiac rehab.
6. Stable for discharge from a cardiac standpoint.
Discussed all of the above in detail with son-in-law at bedside as well as with patient
Impression / Plan
-
PCP: Dr. Storm
Cardiology: None prior to admission, seen by [facility]C at [facility]
Impression:
Admitted to [facility] with chest pain and hematochezia 01/23/24
Transferred to for CABG evaluation 01/28/24
NSTEMI, peak Troponin T at [facility] 90
MV CAD by cath at [facility] 01/28/24
s/p cath at [facility] normal LM, prox LAD 90% stenosis followed by multiple areas of 50 to 70% mid LAD stenosis, OM 2 long area of mid 50 to 70% stenosis 01/28/24
Hematochezia with unremarkable GI work-up at [facility]
ARCENIO at [facility] prior to transfer
HTN
DM 2
Echo 01/24/24: [facility] study, preserved EF, no significant valve disease
Cath 01/30/24: Complex percutaneous coronary intervention of the ostial, proximal, and mid left anterior descending artery with placement of overlapping drug-eluting stents (2.0 x 26 mm Zachariah overlapping with a 2.25 x 30 mm Zachariah) postdilated distally
at high pressure with a 2.0 mm diameter noncompliant balloon and proximally/ostially with a 2.5 mm diameter noncompliant balloon at high pressure)
Plan:
-Patient came to as a transfer on 01/28/24 for evaluation of MV CAD and cardiology is now consulted. Patient and his son describe an episode of chest pain in October that was evaluated by PCP with an ECG in the office that was reportedly normal.
Chest pain described as episodes of pain while at a park x2-3 episodes. Patient was referred to cardiology and family says that they had a new patient appt scheduled for February, but on 01/23/24 patient was at work when he had bloody BM and then
started with chest pain that did not resolve so he was taken to [facility] ER. Troponin elevated at [facility]. Patient was seen by cardiology and recommended a cath, but first needed a GI work-up, patient had never had colonoscopy previously. Patient had
unremarkable colonoscopy at [facility]. Patient then had cardiac cath at [facility] 01/28/24 that showed MV CAD and was transferred to for a CABG evaluation. Heart team discussion was completed and patient refused coronary artery bypass grafting and therefore
underwent PCI to the LAD yesterday.
He is doing well this morning and does not offer any complaints. He has been ambulating with no recurrent chest discomfort. Right radial access site is stable.
Recommendations:
1. Continue dual antiplatelet therapy with daily baby aspirin and Brilinta 90 mg twice daily in the setting of ACS for at least 1 year along with high intensity statin and beta-reji as tolerated. Given stable hemodynamics we will switch him to
25 mg of Toprol-XL upon discharge.
2. Continued management of cardiovascular risk factors aggressively.
3. His oral antidiabetic medications will be resumed with plan to restart metformin in 48 hours post cath.
4. ECG postintervention continues to remain stable with sinus rhythm and no acute ischemic changes.
5. Outpatient cardiology follow-up has been set up with the [facility] and he will be referred for outpatient cardiac rehab.
6. Stable for discharge from a cardiac standpoint.
Discussed all of the above in detail with son-in-law at bedside as well as with patient
Progress Note - Veterans Services Specialist
Subjective
Date of Service: January 31, 2024
No complaints overnight
Objective
Labs:
01/31/24 03:47
01/31/24 03:47
Labs
Hgb 12.2 g/dL (13.0-18.0) L 01/31/24 03:47
Hct 36.5 % (39.0-52.0) L 01/31/24 03:47
Plt Count 189 10^3/uL (130-400) 01/31/24 03:47
PT 13.9 Sec (11.4-14.6) 01/29/24 02:30
INR 1.09 01/29/24 02:30
APTT 87.7 Sec (23.4-35.0) H 01/30/24 12:01
Sodium 141 mmol/L (135-145) 01/31/24 03:47
Potassium 4.1 mmol/L (3.5-5.1) 01/31/24 03:47
BUN 8 mg/dl (9-20) L 01/31/24 03:47
Creatinine 1.1 mg/dL (0.7-1.3) 01/31/24 03:47
Glucose 95 mg/dl (70-99) 01/31/24 03:47
Troponins
01/29/24
02:30
Troponin I 0.062 H*
Vital Signs and I&O:
Vital Signs
Temp Pulse Resp BP Pulse Ox
98.7 F 91 16 101/81 100
01/31/24 07:56 01/31/24 09:00 01/31/24 07:56 01/31/24 07:53 01/31/24 09:03
Vital Signs
Temp Pulse Resp BP Pulse Ox
98.7 F 91 16 101/81 100
01/31/24 07:56 01/31/24 09:00 01/31/24 07:56 01/31/24 07:53 01/31/24 09:03
Intake & Output
01/29/24 01/30/24 01/31/24 02/01/24
06:59 06:59 06:59 06:59
Intake Total 358 / 358 644 / 644 989 / 989
Output Total 900 / 900 400 / 400
Balance -542 / -542 644 / 644 589 / 589
Physical Exam
Physical Exam
No acute distress, awake, alert and oriented x 3,
Normal S1 and S2, no murmurs, rubs or gallops
Lungs are clear to auscultation bilaterally
Right radial access site with dressing in place which is clean, dry and intact without evidence of hematoma or bruit
Abdomen is soft, nontender, nondistended with active bowel sounds
Warm extremities without significant edema
[2024-01-31 11:59] VITALS: BP 117/73
[2024-01-31 11:59] LABS: Glucose - Point of Care 172 mg/dl (70-99)
--- NOTE | 2024-01-31 13:36 | W.PN.HOSP.TC ---
Today's Communication/Plan
-
Discharge planning today
Assessment / Plan
Assessment / Plan
Physical exam:
General: Well Developed, Well Nourished and No Apparent Distress
HEENT: Normocephalic, Atraumatic and Moist Mucous Membranes
Respiratory: Clear to Auscultation; Negative Wheezes, Rales or Rhonchi
Cardiac: Regular Rhythm and S1/S2
GI: Soft, Nontender and Nondistended
Musculoskeletal: No Clubbing, No Cyanosis and No Edema
Neuro: Awake, Alert and Oriented
Psych: Calm
A/P:
# NSTEMI
# Multivessel CAD
-As per catheterization at [place], prox LAD 90% stenosis followed by multiple areas of 50 to 70% mid LAD stenosis, OM 2 long area of mid 50 to 70% stenosis 01/28/24
-Patient was transferred here for CABG however patient refused CABG and now transferred to hospitalist service
-Patient underwent cardiac catheterization with Complex percutaneous coronary intervention of the ostial, proximal, and mid left anterior descending artery
-Continue aspirin, Brilinta, statin
-Heparin drip stopped after catheterization
-Metoprolol started
-Cardiology cleared him for discharge today.
Recent hematochezia
-Now resolved
-Unremarkable colonoscopy [place]
-No GI bleeding currently and patient tolerated heparin drip which is now
ARCENIO at [place]
-Creatinine of 1.3 previously, now resolved to 1.1
-Losartan held
Essential hypertension
-Blood pressure control
Type 2 diabetes
-Metformin, pioglitazone, empagliflozin on hold
-Insulin sliding scale
Hyperlipidemia
-Continue statin
Full code
DVT prophylaxis�SCDs
Anticipated Discharge: Today
Subjective/Interval History
-
Date of Service: January 31, 2024
Patient denies chest pain or shortness of breath
Objective Data
-
Labs:
Laboratory Results
01/31/24
03:47
WBC 4.6 L
Hgb 12.2 L
Hct 36.5 L
Plt Count 189
Sodium 141
Potassium 4.1
Chloride 108 H
Carbon Dioxide 20 L
BUN 8 L
Creatinine 1.1
Glucose 95
Calcium 8.7
Vital Signs:
Vital Signs
Temp Pulse Resp BP Pulse Ox
98.4 F 83 18 101/81 99
01/31/24 12:01 01/31/24 10:00 01/31/24 12:01 01/31/24 07:53 01/31/24 12:01
I&O
01/30/24 01/31/24 02/01/24
06:59 06:59 06:59
Intake Total 644 / 644 989 / 989
Output Total 400 / 400
Balance 644 / 644 589 / 589
--- NOTE | 2024-01-31 14:34 | W.CARD.POSTP ---
Post PCI Follow Up
Procedure
Procedure/Date: 01/30/24 Procedures performed: Complex percutaneous coronary intervention of the ostial, proximal, and mid left anterior descending artery with placement of overlapping drug-eluting stents (2.0 x 26 mm [place] overlapping with a 2.25 x
30 mm Zachariah)
Subjective: denies cp, sob
Site
Site: Radial: Right and No ht/bleeding, distal pulses palpable
Tele / EKG
SR no ectopy
Labs
01/31/24 03:47
01/31/24 03:47
PT 13.9 Sec (11.4-14.6) 01/29/24 02:30
INR 1.09 01/29/24 02:30
APTT 87.7 Sec (23.4-35.0) H 01/30/24 12:01
Magnesium 1.8 mg/dl (1.6-2.3) 01/28/24 16:35
Triglycerides 47 mg/dl (10-149) 01/28/24 16:35
LDL Cholesterol, Calc 33 mg/dl 01/28/24 16:35
VLDL Cholesterol, Calc 9 mg/dl (0-30) 01/28/24 16:35
HDL Cholesterol 36 mg/dl 01/28/24 16:35
DAPT Medication
DAPT Medication: Aspirin 81mg daily and Tricagrelor 90 mg BID
Case Management checking velasquez: Yes (Zero copay for Brilinta, script sent)
Plan
Post PCI LADx2
f/u Dr. Santiago at [facility] 03/07@3pm
--- NOTE | 2024-01-31 15:43 | PTCARENOTE ---
All D/C info reviewed with son and pt, all questions answered. Pt D/C'd home with son.
== END 2024-01-31 16:09 | disposition home or self-care (01) | DRG 322 ==
LOC: IVU 16:19
PROVIDERS: Clinical Nurse Specialist Acute Care; Internal Medicine Interventional Cardiology; Nurse Practitioner Adult Health; ADMITTING PHYSICIAN Thoracic Surgery (Cardiothoracic Vascular Surgery); ATTENDING PHYSICIAN Hospitalist; CONSULT PHYSICIAN Internal Medicine Interventional Cardiology; FAMILY PHYSICIAN Family Medicine
PROC: B2111ZZ Fluoroscopy of Multiple Coronary Arteries using Low Osmolar Contrast (ICD-10-PCS; 2024-01-30)
PROC: 027035Z Dilation of Coronary Artery, One Artery with Two Drug-eluting Intraluminal Devices, Percutaneous Approach (ICD-10-PCS; 2024-01-30)
PROC: B240ZZ3 Ultrasonography of Single Coronary Artery, Intravascular (ICD-10-PCS; 2024-01-30)
PROC: 4A023N7 Measurement of Cardiac Sampling and Pressure, Left Heart, Percutaneous Approach (ICD-10-PCS; 2024-01-30)
DX: I21.4 Non-ST elevation (NSTEMI) myocardial infarction (principal); I25.10 Atherosclerotic heart disease of native coronary artery without angina pectoris; I10 Essential (primary) hypertension; E11.9 Type 2 diabetes mellitus without complications; Z79.82 Long term (current) use of aspirin; Z79.84 Long term (current) use of oral hypoglycemic drugs
CPT/HCPCS: 71250; 80048; 80053; 80061; 82248; 82962; 83036; 83735; 84484; 85027; 85347; 85610; 85730; 86850; 86900; 86901; 92978; 93005; 93880; C1725; C1753; C1769; C1874; C1887; C1894; C9600; J1327; Q9967